=== PATIENT | female | born 1970 | race Caucasian/White ===

== ENCOUNTER 2022-04-09 19:42 | Emergency (ER) | payer OTHER ==
[~2022-04-09] VITALS: Ht 142.2 cm; Wt 49.9 kg
[2022-04-09 21:00] LABS: BASOPHILS ABSOLUTE AUTO 0.09 K/mm3 (0.00-0.23); BASOPHILS PERCENT AUTO 1 % (0-2); EOSINOPHILS ABSOLUTE AUTO 0.29 K/mm3 (0.00-0.68); EOSINOPHILS PERCENT AUTO 4 % (0-6); Hemoglobin 11.3 g/dL (11.5-16.0); IMMATURE GRAN ABSOLUTE AUTO 0.02 K/mm3 (0.00-0.10); IMMATURE GRAN PERCENT AUTO 0 % (0-1); LYMPHOCYTES ABSOLUTE AUTO 2.08 K/mm3 (0.84-5.20); LYMPHOCYTES PERCENT AUTO 26 % (21-46); MONOCYTES ABSOLUTE AUTO 0.59 K/mm3 (0.16-1.47); MONOCYTES PERCENT AUTO 7 % (4-13); Mean Corpuscular HGB 24.7 pg (26.0-34.0); Mean Corpuscular HGB Conc 30.5 g/dL (31.5-36.5); Mean Corpuscular Volume 81 fL (80-100); Mean Platelet Volume 10.3 fL (9.1-12.4); NEUTROPHILS ABSOLUTE AUTO 5.01 K/mm3 (1.96-9.15); NEUTROPHILS PERCENT AUTO 62 % (41-73); Platelet Count 391 K/mm3 (150-400); RDW Coefficient Variation 16.3 % (11.7-14.2); RDW Standard Deviation 47.6 fL (35.1-46.3); Red Blood Cell Count 4.57 M/mm3 (3.80-5.20); White Blood Cell Count 8.08 K/mm3 (4.00-11.30)
[2022-04-09 21:20] LABS: Albumin, Blood 3.2 g/dL (3.4-5.0); Albumin/Globulin Ratio 0.7 (0.8-1.8); Bilirubin, Total 0.2 mg/dL (0.1-1.0); Bun/Creatinine Ratio 39.9 (12.0-20.0); Calcium, Blood 8.9 mg/dL (8.5-10.1); Creatinine, Blood 0.6 mg/dL (0.40-1.00); Globulin, Blood 4.7 g/dL (2.2-4.0); Potassium, Blood 4.1 mmol/L (3.5-5.5); Total Protein, Blood 7.9 g/dL (6.4-8.2)
[2022-04-10] MEDS ORDERED: ONDA4ODT MM (00:32)
== END 2022-04-10 00:40 | disposition home or self-care (01) ==
LOC: ER 19:42
PROVIDERS: Physician Assistant
DX: R10.84 Generalized abdominal pain (principal); K92.0 Hematemesis; F17.210 Nicotine dependence, cigarettes, uncomplicated; Z88.1 Allergy status to other antibiotic agents; Z91.018 Allergy to other foods
CPT/HCPCS: 74177; 80053; 85025; 86850; 86900; 86901; 96374; 96376; 99284-25; J2405; Q9967

== ENCOUNTER → 2022-04-30 | Outpatient (CLI) | payer OTHER ==
[~2022-04-30] MED LIST: ONDA4ODT MM
== END | disposition home or self-care (01) ==
LOC: LAB SHORT 13:05 → LAB 13:05
DX: R76.12 Nonspecific reaction to cell mediated immunity measurement of gamma interferon antigen response without active tuberculosis (principal)
CPT/HCPCS: 87015; 87116; 87206

== ENCOUNTER 2023-05-19 19:59 | Emergency (ER) | payer OTHER ==
[~2023-05-19] VITALS: Ht 142.2 cm; Wt 47.6 kg
[2023-05-19 20:49] LABS: BASOPHILS ABSOLUTE AUTO 0.06 K/mm3 (0.00-0.23); BASOPHILS PERCENT AUTO 1 % (0-2); EOSINOPHILS ABSOLUTE AUTO 0.43 K/mm3 (0.00-0.68); EOSINOPHILS PERCENT AUTO 7 % (0-6); Hematocrit 43.7 % (33.0-51.0); Hemoglobin 13.7 g/dL (11.5-16.0); IMMATURE GRAN ABSOLUTE AUTO 0.01 K/mm3 (0.00-0.10); IMMATURE GRAN PERCENT AUTO 0 % (0-1); LYMPHOCYTES ABSOLUTE AUTO 2.36 K/mm3 (0.84-5.20); LYMPHOCYTES PERCENT AUTO 37 % (21-46); MONOCYTES ABSOLUTE AUTO 0.52 K/mm3 (0.16-1.47); MONOCYTES PERCENT AUTO 8 % (4-13); Mean Corpuscular HGB 29.8 pg (26.0-34.0); Mean Corpuscular HGB Conc 31.4 g/dL (31.5-36.5); Mean Corpuscular Volume 95 fL (80-100); Mean Platelet Volume 10.6 fL (9.1-12.4); NEUTROPHILS ABSOLUTE AUTO 3.07 K/mm3 (1.96-9.15); NEUTROPHILS PERCENT AUTO 48 % (41-73); Platelet Count 220 K/mm3 (150-400); RDW Coefficient Variation 13.5 % (11.7-14.2); RDW Standard Deviation 47.4 fL (35.1-46.3); White Blood Cell Count 6.45 K/mm3 (4.00-11.30)
[2023-05-19 21:11] LABS: Albumin, Blood 3.3 g/dL (3.4-5.0); Albumin/Globulin Ratio 0.9 (0.8-1.8); Bilirubin, Total 0.2 mg/dL (0.1-1.0); Bun/Creatinine Ratio 11.9 (12.0-20.0); Calcium, Blood 8.5 mg/dL (8.5-10.1); Creatinine, Blood 0.76 mg/dL (0.40-1.00); Globulin, Blood 3.5 g/dL (2.2-4.0); Potassium, Blood 4.4 mmol/L (3.5-5.5); Total Protein, Blood 6.8 g/dL (6.4-8.2)
[2023-05-20 00:15] VITALS: BP 119/89
[2023-05-20] MEDS ORDERED: SUCR1 PO (00:28)
[2023-05-20] MEDS ORDERED: PANT40 PO (00:28)
[2023-05-20] MEDS ORDERED: ONDA4ODT MM (00:29)
== END 2023-05-20 00:18 | disposition home or self-care (01) ==
LOC: ER 19:59
PROVIDERS: Student in an Organized Health Care Education/Training Program
DX: K92.1 Melena (principal); R11.2 Nausea with vomiting, unspecified; R10.13 Epigastric pain; Z88.1 Allergy status to other antibiotic agents; Z88.8 Allergy status to other drugs, medicaments and biological substances; Z91.018 Allergy to other foods; K21.9 Gastro-esophageal reflux disease without esophagitis; F17.210 Nicotine dependence, cigarettes, uncomplicated
CPT/HCPCS: 80053; 85025; 86850; 86900; 86901; 96374; 96375; 99283-25; A9270; C9113; J2405

== ENCOUNTER 2023-09-24 15:13 | Emergency (ER) | payer OTHER ==
[~2023-09-24] VITALS: Ht 147.3 cm; Wt 55.3 kg
[~2023-09-24 15:13] MED LIST changes: +PANT40 PO; +SUCR1 PO
[2023-09-24 16:11] LABS: BASOPHILS ABSOLUTE AUTO 0.05 K/mm3 (0.00-0.23); BASOPHILS PERCENT AUTO 0 % (0-2); EOSINOPHILS PERCENT AUTO 2 % (0-6); Hematocrit 39.6 % (33.0-51.0); Hemoglobin 12.6 g/dL (11.5-16.0); IMMATURE GRAN ABSOLUTE AUTO 0.05 K/mm3 (0.00-0.10); IMMATURE GRAN PERCENT AUTO 0 % (0-1); LYMPHOCYTES ABSOLUTE AUTO 1.37 K/mm3 (0.84-5.20); LYMPHOCYTES PERCENT AUTO 9 % (21-46); MONOCYTES PERCENT AUTO 7 % (4-13); Mean Corpuscular HGB 28.9 pg (26.0-34.0); Mean Corpuscular HGB Conc 31.8 g/dL (31.5-36.5); Mean Corpuscular Volume 91 fL (80-100); Mean Platelet Volume 9.8 fL (9.1-12.4); NEUTROPHILS ABSOLUTE AUTO 12.35 K/mm3 (1.96-9.15); NEUTROPHILS PERCENT AUTO 82 % (41-73); Platelet Count 216 K/mm3 (150-400); RDW Coefficient Variation 14.5 % (11.7-14.2); RDW Standard Deviation 48.7 fL (35.1-46.3); Red Blood Cell Count 4.36 M/mm3 (3.80-5.20); White Blood Cell Count 15.12 K/mm3 (4.00-11.30)
[2023-09-24 16:38] LABS: Magnesium, Blood 2.1 mg/dL (1.6-2.4)
[2023-09-24 16:50] LABS: Albumin, Blood 3.2 g/dL (3.4-5.0); Albumin/Globulin Ratio 0.8 (0.8-1.8); Bilirubin, Total 0.4 mg/dL (0.1-1.0); Bun/Creatinine Ratio 16.7 (12.0-20.0); Calcium, Blood 8.6 mg/dL (8.5-10.1); Creatinine, Blood 0.66 mg/dL (0.40-1.00); Globulin, Blood 3.9 g/dL (2.2-4.0); Potassium, Blood 4.6 mmol/L (3.5-5.5); Total Protein, Blood 7.1 g/dL (6.4-8.2)
[2023-09-24] MEDS ORDERED: Vibramycin100 MG PO (18:45)
[2023-09-24 19:02] VITALS: BP 125/77
== END 2023-09-24 19:05 | disposition home or self-care (01) ==
LOC: ER 15:13
PROVIDERS: Physician Assistant
DX: J44.9 Chronic obstructive pulmonary disease, unspecified (principal); J06.9 Acute upper respiratory infection, unspecified; D72.829 Elevated white blood cell count, unspecified; F17.210 Nicotine dependence, cigarettes, uncomplicated; Z88.1 Allergy status to other antibiotic agents; Z88.8 Allergy status to other drugs, medicaments and biological substances; Z91.018 Allergy to other foods; Z79.899 Other long term (current) drug therapy
CPT/HCPCS: 80053; 83735; 85025; 99283; A9270

== ENCOUNTER 2024-06-15 10:26 | Inpatient (IN) | payer OTHER ==
[~2024-06-15] VITALS: Ht 142.2 cm; Wt 63.5 kg
[~2024-06-15 10:26] MED LIST changes: +ALBU90OI61; +BUSPIRONE HCL10 M2; +CEPH500 PO; +COMPRESSION STOCKING; +Celexa20 MG; +LASIX20 M2 PO; +LOSA50; +METH10; +METH40; +PANT20; +Vibramycin100 MG PO
[2024-06-15 11:29] LABS: BASOPHILS ABSOLUTE AUTO 0.06 K/mm3 (0.00-0.23); BASOPHILS PERCENT AUTO 0 % (0-2); EOSINOPHILS ABSOLUTE AUTO 0.24 K/mm3 (0.00-0.68); EOSINOPHILS PERCENT AUTO 2 % (0-6); Hemoglobin 12.7 g/dL (11.5-16.0); IMMATURE GRAN ABSOLUTE AUTO 0.05 K/mm3 (0.00-0.10); IMMATURE GRAN PERCENT AUTO 0 % (0-1); LYMPHOCYTES ABSOLUTE AUTO 1.63 K/mm3 (0.84-5.20); LYMPHOCYTES PERCENT AUTO 12 % (21-46); MONOCYTES ABSOLUTE AUTO 0.99 K/mm3 (0.16-1.47); MONOCYTES PERCENT AUTO 7 % (4-13); Mean Corpuscular HGB 28.9 pg (26.0-34.0); Mean Corpuscular Volume 93 fL (80-100); Mean Platelet Volume 9.9 fL (9.1-12.4); NEUTROPHILS ABSOLUTE AUTO 10.63 K/mm3 (1.96-9.15); NEUTROPHILS PERCENT AUTO 78 % (41-73); Platelet Count 204 K/mm3 (150-400); RDW Coefficient Variation 15.9 % (11.7-14.2); RDW Standard Deviation 54.9 fL (35.1-46.3)
[2024-06-15] MEDS ORDERED: LOSARTAN POTASS25 M2 PO (11:44)
[2024-06-15] MEDS ORDERED: OLANZAPINE5 M1 PO (11:44)
[2024-06-15] MEDS ORDERED: PANTOPRAZOLE SO40 M2 PO (11:45)
[2024-06-15 11:46] LABS: Albumin, Blood 3.1 g/dL (3.4-5.0); Albumin/Globulin Ratio 0.8 (0.8-1.8); Bilirubin, Total 0.4 mg/dL (0.1-1.0); Bun/Creatinine Ratio 19.1 (12.0-20.0); Calcium, Blood 8.9 mg/dL (8.5-10.1); Creatinine, Blood 0.73 mg/dL (0.40-1.00); Potassium, Blood 4.7 mmol/L (3.5-5.5); Total Protein, Blood 7.1 g/dL (6.4-8.2)
[2024-06-15] MEDS ORDERED: LANSOPRAZOLE30 MG PO (11:47)
[2024-06-15] MEDS ORDERED: BUSPIRONE HCL10 M6 PO (11:47)
[2024-06-15] MEDS ORDERED: ONDA4 PO (11:47)
[2024-06-15] MEDS ORDERED: CITALOPRAM HBR20 M9 PO (11:48)
[2024-06-15] MEDS ORDERED: ALBU90OI INH (11:48)
[2024-06-15] MEDS ORDERED: MIRALAX11914 PO (11:48)
[2024-06-15 12:05] LABS: Source, Urine Clean Catch
[2024-06-15 12:15] LABS: Appearance, Urine Clear (Clear); Bilirubin, Urine Neg (Neg); Blood, Urine Neg (Neg); Color, Urine Yellow (P-Yellow); Glucose Qualitative, Urine Neg (Neg); Ketones, Urine Neg (Neg); Leukocyte Esterase, Urine 1+ (Neg); Nitrite, Urine Neg (Neg); Protein, Urine Neg (Neg); Urobilinogen, Urine 1+ (Normal); pH, Urine 6.5 (5.0-8.0)
[2024-06-15 12:26] LABS: Bacteria Rare /hpf; Red Blood Cells, Urine Not Seen /hpf (0-2); Squamous Epithelial Cells Few /hpf (Few)
[2024-06-15 13:14] LABS: BASOPHILS ABSOLUTE AUTO 0.04 K/mm3 (0.00-0.23); BASOPHILS PERCENT AUTO 0 % (0-2); EOSINOPHILS ABSOLUTE AUTO 0.24 K/mm3 (0.00-0.68); EOSINOPHILS PERCENT AUTO 2 % (0-6); Hematocrit 38.3 % (33.0-51.0); Hemoglobin 12.2 g/dL (11.5-16.0); IMMATURE GRAN ABSOLUTE AUTO 0.05 K/mm3 (0.00-0.10); IMMATURE GRAN PERCENT AUTO 0 % (0-1); LYMPHOCYTES ABSOLUTE AUTO 1.75 K/mm3 (0.84-5.20); LYMPHOCYTES PERCENT AUTO 14 % (21-46); MONOCYTES ABSOLUTE AUTO 0.83 K/mm3 (0.16-1.47); MONOCYTES PERCENT AUTO 7 % (4-13); Mean Corpuscular HGB 29.3 pg (26.0-34.0); Mean Corpuscular HGB Conc 31.9 g/dL (31.5-36.5); Mean Corpuscular Volume 92 fL (80-100); Mean Platelet Volume 10.2 fL (9.1-12.4); NEUTROPHILS ABSOLUTE AUTO 9.39 K/mm3 (1.96-9.15); NEUTROPHILS PERCENT AUTO 76 % (41-73); Platelet Count 189 K/mm3 (150-400); RDW Coefficient Variation 15.8 % (11.7-14.2); RDW Standard Deviation 52.9 fL (35.1-46.3); Red Blood Cell Count 4.17 M/mm3 (3.80-5.20)
[2024-06-15 13:41] LABS: Albumin, Blood 2.9 g/dL (3.4-5.0); Albumin/Globulin Ratio 0.7 (0.8-1.8); Bilirubin, Total 0.4 mg/dL (0.1-1.0); Bun/Creatinine Ratio 20.5 (12.0-20.0); Calcium, Blood 8.4 mg/dL (8.5-10.1); Creatinine, Blood 0.68 mg/dL (0.40-1.00); Globulin, Blood 3.9 g/dL (2.2-4.0); Potassium, Blood 4.8 mmol/L (3.5-5.5); Total Protein, Blood 6.8 g/dL (6.4-8.2)
[2024-06-15] MEDS ORDERED: Aspirin 325 MG Tab PO ONE ×2 (16:20→18:00)
[2024-06-15] MEDS ORDERED: Albuterol 2.5 MG/3 ML VIAL INH PRN (17:40)
[2024-06-15] MEDS ORDERED: Acetaminophen 325 MG TABLET PO PRN (17:40)
[2024-06-15] MEDS ORDERED: Ondansetron HCl 2 MG / ML 2ML Vial IV PRN (17:45)
[2024-06-15] MEDS ORDERED: Ipratropium/Albuterol SulF 2.5-0.5MG/3 ML Amp INH SCH (17:45)
[2024-06-15] MEDS ORDERED: NS 1,000 ML IV SCH (17:45)
[2024-06-15] MEDS ORDERED: NS 1,000 ML IV ONE ×2 (18:00→19:50)
[2024-06-15] MEDS ORDERED: MethylPREDNISolone Sod Succ 125 MG Vial IV SCH ×2 (18:00→20:00)
[2024-06-15 18:03] LABS: U Methadone Screen DETECTED
[2024-06-15 18:04] LABS: U Amphetamine Screen Not Detected; U Barbituate Screen Not Detected; U Benzodiazapine Screen Not Detected; U Buprenorphine Screen Not Detected; U Cannabinoids Screen Not Detected; U Cocaine Screen Not Detected; U Methamphetamine Screen Not Detected; U Opiates Screen Not Detected; U Oxycodone Screen Not Detected; U Phencyclidine Screen Not Detected
[2024-06-15] MEDS ORDERED: CefTRIAXone Sodium 1,000 MG in NS 100 ML IV SCH (18:30)
[2024-06-15 19:38] LABS: SARS-Cov-2 (COVID-19) PCR, MMC NEGATIVE (NEGATIVE)
[2024-06-15 20:25] VITALS: BP 113/70
[2024-06-15] MEDS ORDERED: Doxycycline Hyclate 100 MG TAB PO SCH (21:00)
[2024-06-15] MEDS ORDERED: Lactobacil 2-S.Thermo-Bifido 1 1 Cap PO SCH (21:00)
[2024-06-15] MEDS ORDERED: OLANZapine 5 MG Tab PO SCH (21:00)
[2024-06-16 03:43] VITALS: BP 108/68
[2024-06-16 05:29] LABS: Hemoglobin 12.4 g/dL (11.5-16.0); Mean Corpuscular Volume 94 fL (80-100); Mean Platelet Volume 10.7 fL (9.1-12.4); Platelet Count 149 K/mm3 (150-400); RDW Coefficient Variation 15.8 % (11.7-14.2); RDW Standard Deviation 54.4 fL (35.1-46.3); Red Blood Cell Count 4.28 M/mm3 (3.80-5.20); White Blood Cell Count 6.35 K/mm3 (4.00-11.30)
[2024-06-16] MEDS ORDERED: Pantoprazole Sodium 40 MG Injection IV SCH (06:00)
[2024-06-16 06:05] LABS: Anion Gap 9 mmol/L (3-11); Blood Urea Nitrogen 10 mg/dL (8-24); Bun/Creatinine Ratio 18.1 (12.0-20.0); CHOL/HDL RATIO 2.9; CO2, Blood 28 mmol/L (21-32); Calcium, Blood 8.6 mg/dL (8.5-10.1); Chloride, Blood 106 mmol/L (98-108); Cholesterol 144 mg/dL (50-200); Creatinine, Blood 0.55 mg/dL (0.40-1.00); Glomerular Filtration Rate 111 (60-); Glucose, Blood 228 mg/dL (70-99); HDL Cholesterol 50 mg/dL (>39); LDL/HDL RATIO 1.7; Low Density Lipoprotein Chol 85 mg/dL (0-110); Magnesium, Blood 2.2 mg/dL (1.6-2.4); Potassium, Blood 4.2 mmol/L (3.5-5.5); Sodium, Blood 139 mmol/L (136-145); Triglycerides 43 mg/dL (30-160); Very Low Density Lipoprot Chol 8 mg/dL (6-32)
--- NOTE | 2024-06-16 06:45 | NUR ---
PT ARRIVED ON FLOOR A/OX4, NO PAIN, 2L OF OXYGEN VIA NC. ADMISSION PROCESS COMPLETED, PT VERY TIRED AND QUICK TO FALL ASLEEP. OCCASIONALLY DESATURATED WHILE ASLEEP, REQUIRING INCREASE IN OXYGEN FLOW UP TO 6-7 LITERS FOR OXYGEN TO RETURN >90, TITRATED TO 3L.
[2024-06-16 07:14] VITALS: BP 121/76
[2024-06-16] MEDS ORDERED: Aspirin 81 MG Chew PO SCH (09:00)
[2024-06-16] MEDS ORDERED: Enoxaparin 40 MG/0.4 ML SYR SC SCH (09:00)
--- NOTE | 2024-06-16 10:31 | NUR ---
METHADONE CALLED [facility] AND SPOKE WITH MICHAEL, VERIFIED PATIENT TAKES 120MG METHADONE DAILY. WILL NEED TO KEEP A RECORD OF EACH DAY SHE RECEIVES METHADONE WHILE ADMITTED. PER SARAH, THEY WILL CONTACT HOSPITAL STAFF ONCE SHE DISCHARGES AND FOLLOWS UP WITH THE CLINIC FOR THIS INFORMATION.
[2024-06-16] MEDS ORDERED: Polyethylene Glycol 3350 17 gm PO PRN (10:35)
[2024-06-16] MEDS ORDERED: METH40 PO (10:36)
[2024-06-16] MEDS ORDERED: Methadone HCL 10 MG TAB PO SCH (11:00)
[2024-06-16 14:58] VITALS: BP 134/71
[2024-06-16] MEDS ORDERED: MethylPREDNISolone Sod Succ 125 MG Vial IV SCH (16:00)
[2024-06-16] MEDS ORDERED: Pantoprazole Sodium 20 MG Tab PO SCH (16:30)
--- NOTE | 2024-06-16 19:39 | NUR ---
SHIFT SUMMARY COPD EXACERBATION, FLUIDS ORDERED, ABX ORDERED, BREATHING TREATMENTS AND STEROIDS ORDERED, PT HAS VERY WHEEZY LUNGS AND WAS EDUCATED TO DEEP BREATH WHEN HER BIOX BEEPS IF NO STAFF IS IN THE ROOM, EDUCATED HER TO CALL IF SHE FEELS SOB, NO SOB THIS SHIFT, CALLS APPROPRIATELLY. NO ACUTE EVENTS THIS SHIFT, CALL LIGHT IN PLACE.
[2024-06-16 19:53] VITALS: BP 108/56
[2024-06-16] MEDS ORDERED: Docusate Sodium/Senna 1 Tab PO SCH (21:00)
[2024-06-16] MEDS ORDERED: GuaiFENesin 600 MG TabCR PO SCH (21:00)
[2024-06-17 03:36] VITALS: BP 113/75
[2024-06-17 06:48] LABS: Albumin, Blood 2.6 g/dL (3.4-5.0); Anion Gap 9 mmol/L (3-11); Blood Urea Nitrogen 13 mg/dL (8-24); Bun/Creatinine Ratio 23.7 (12.0-20.0); CO2, Blood 26 mmol/L (21-32); Calcium, Blood 8.5 mg/dL (8.5-10.1); Chloride, Blood 108 mmol/L (98-108); Creatinine, Blood 0.55 mg/dL (0.40-1.00); Glomerular Filtration Rate 111 (60-); Glucose, Blood 192 mg/dL (70-99); Phosphorus, Blood 2.6 mg/dL (2.5-4.9); Potassium, Blood 4.4 mmol/L (3.5-5.5); Sodium, Blood 139 mmol/L (136-145)
[2024-06-17 07:29] VITALS: BP 146/93
[2024-06-17 14:33] VITALS: BP 132/88
[2024-06-17 19:37] VITALS: BP 137/88
--- NOTE | 2024-06-17 20:25 | NUR ---
SHIFT SUMMARY COPD EXACERBATION, BREATHING IMPROVED TODAY, O2 REMAINSTHE SAME BUT SATS ARE A FEW POINTS HIGHER AT 93-94%, AMBULATES IN THE ROOM WITH SBA. NO ACUTE EVENTS THIS SHIFT, CALL LIGHT IN REACH.
[2024-06-18 05:30] VITALS: BP 134/97
[2024-06-18 07:11] VITALS: BP 135/76
--- NOTE | 2024-06-18 07:13 | NUR ---
SHIFT SUMMARY NOC. PT ADMIT FOR COPD EXACERBATION. PT REPORTS SOB ON EXERTION, NO SOB AT REST OR CP. PT ON CONTIN BIOX AND WEANED FROM 4L TO 3L VIA N/C. PT VOIDING URINE AND TOLERATING PO INTAKE. PT RESTED WITH EYES AND CALL LIGHT IN REACH.
--- NOTE | 2024-06-18 08:28 | NUR ---
SPEECH THERAPY IN TO SEE PT.
[2024-06-18] MEDS ORDERED: PredniSONE 20 MG Tab PO SCH (09:00)
[2024-06-18] MEDS ORDERED: LOSA25 PO (10:55)
[2024-06-18] MEDS ORDERED: GABA300 PO (11:02)
[2024-06-18 14:39] VITALS: BP 149/98
--- NOTE | 2024-06-18 17:06 | NUR ---
SUMMARY NO ACUTE CHANGES T/O SHIFT. PT GETS SOB WITH EXERTION. FELT LIGHT HEADED BRIEFLY WHEN GOT UP TO BSC. KNOWS TO CALL FOR SBA WHEN GETTING UP TO BSC. SWALLOW EVAL COMPLETED TODAY AND DIET CHANGED TO SOFT BITE SIZED. CALL LIGHT IN REACH.
[2024-06-18 20:02] VITALS: BP 149/79
[2024-06-18] MEDS ORDERED: Losartan Potassium 25 MG Tab PO SCH (21:00)
[2024-06-18] MEDS ORDERED: BusPIRone HCl 10 MG Tab PO SCH (21:00)
--- NOTE | 2024-06-19 05:02 | NUR ---
SHIFT SUMMARY NOC. PT ADMIT FOR COPD EXACERBATION. PT SOB ON EXERTION, DENIES DYSPNEA AT REST OR CHEST PAIN. PT ON O2 VIA N/C WEANED TO 1L FROM 2L, NO DESAT EVENTS NOTED. PT VOIDING URINE. PT RESTED WITH EYES CLOSED AND CALL LIGHT IN REACH.
[2024-06-19 05:17] VITALS: BP 151/88
[2024-06-19] MEDS ORDERED: Pantoprazole Sodium 40 MG Tab PO SCH (06:00)
[2024-06-19 07:23] VITALS: BP 142/91
[2024-06-19] MEDS ORDERED: Citalopram Hydrobromide 20 MG Tab PO SCH (09:00)
[2024-06-19 14:44] VITALS: BP 136/94
--- NOTE | 2024-06-19 17:43 | NUR ---
SUMMARY PT'S 02 INCREASED TO 2L NC MIDDAY DUE TO INCREASED WORAK IN FULL SENTENCES. SATS IN LOW-MID 90S ON 2L NC. REPORTED BLOODY DISCHARGE FROM NOSE WHEN BLOWS IT. OXYGEN HUMIDIFIED. PT EATING DINNER AT THIS TIME. CALL LIGHT IN REACH.
[2024-06-19] MEDS ORDERED: Budesonide 0.5 MG/2 ML RESP INH SCH (19:00)
[2024-06-19 19:50] VITALS: BP 138/76
[2024-06-20 02:41] VITALS: BP 143/80
--- NOTE | 2024-06-20 02:45 | NUR ---
SHIFT SUMMARY NOC. PT ADMIT FOR COPD EXACERBATION. PT HAS SOB ON EXERTION, DENIES SOB AT REST OR CP. PT ON 2L VIA NC WITH BIOX IN PLACE. PT HAS HAD NO DESAT EVENTS. REPORTS PRODUCTIVE COUGH. PT VOIDING URINE. PT TRANSFERED FROM SURGICAL FLOOR TO MEDICAL FLOOR THIS SHIFT AT 0225. REPORT GIVEN BY STEP DOWN NURSE RONDA TO MEDICAL FLOOR.
[2024-06-20 05:55] LABS: Bun/Creatinine Ratio 24.4 (12.0-20.0); Calcium, Blood 8.9 mg/dL (8.5-10.1); Creatinine, Blood 0.66 mg/dL (0.40-1.00); Potassium, Blood 3.7 mmol/L (3.5-5.5)
[2024-06-20 07:34] VITALS: BP 155/88
[2024-06-20 14:55] VITALS: BP 137/85
[2024-06-20 16:25] LABS: Adenovirus Not Detected (NOT DETECT); Bordetella pertussis Not Detected (NOT DETECT); Chlamydophila pneumoniae Not Detected (NOT DETECT); Coronavirus 229E Not Detected (NOT DETECT); Coronavirus HKU1 Not Detected (NOT DETECT); Coronavirus NL63 Not Detected (NOT DETECT); Coronavirus OC43 Not Detected (NOT DETECT); Human Metapneumovirus Not Detected (NOT DETECT); Human Rhinovirus/Enterovirus Detected (NOT DETECT); Influenza A/2009-H1 Not Detected (NOT DETECT); Influenza A/H1 Not Detected (NOT DETECT); Influenza A/H3 Not Detected (NOT DETECT); Influenza B Not Detected (NOT DETECT); Mycoplasma pneumoniae Not Detected (NOT DETECT); Parainfluenza Virus 1 Not Detected (NOT DETECT); Parainfluenza Virus 2 Not Detected (NOT DETECT); Parainfluenza Virus 3 Not Detected (NOT DETECT); Parainfluenza Virus 4 Not Detected (NOT DETECT); Respiratory Syncytial Virus Not Detected (NOT DETECT); SARS-Cov-2 (COVID-19), BioFire Not Detected (NOT DETECT)
--- NOTE | 2024-06-20 18:46 | NUR ---
SUMMARY- PT AAOX4. IND IN ROOM THIS SHIFT. PT ON 1L CONTINUOUS O2 VIA NC THIS SHIFT. PT WEANED DOWN FROM 2L. NO ACUTE EVENTS THIS SHIFT. NO COMPLAINTS OF PAIN. PT CALM AND COOPERATIVE.
[2024-06-20 19:11] VITALS: BP 147/83
[2024-06-21 04:44] VITALS: BP 111/69
[2024-06-21 05:14] LABS: BASOPHILS ABSOLUTE AUTO 0.01 K/mm3 (0.00-0.23); BASOPHILS PERCENT AUTO 0 % (0-2); EOSINOPHILS ABSOLUTE AUTO 0.09 K/mm3 (0.00-0.68); EOSINOPHILS PERCENT AUTO 2 % (0-6); Hematocrit 37.6 % (33.0-51.0); Hemoglobin 11.8 g/dL (11.5-16.0); IMMATURE GRAN ABSOLUTE AUTO 0.06 K/mm3 (0.00-0.10); IMMATURE GRAN PERCENT AUTO 1 % (0-1); LYMPHOCYTES ABSOLUTE AUTO 1.94 K/mm3 (0.84-5.20); LYMPHOCYTES PERCENT AUTO 32 % (21-46); MONOCYTES PERCENT AUTO 7 % (4-13); Mean Corpuscular HGB 28.5 pg (26.0-34.0); Mean Corpuscular HGB Conc 31.4 g/dL (31.5-36.5); Mean Corpuscular Volume 91 fL (80-100); Mean Platelet Volume 10.4 fL (9.1-12.4); NEUTROPHILS ABSOLUTE AUTO 3.66 K/mm3 (1.96-9.15); NEUTROPHILS PERCENT AUTO 59 % (41-73); Platelet Count 179 K/mm3 (150-400); RDW Coefficient Variation 16.1 % (11.7-14.2); RDW Standard Deviation 54.4 fL (35.1-46.3); Red Blood Cell Count 4.14 M/mm3 (3.80-5.20); White Blood Cell Count 6.16 K/mm3 (4.00-11.30)
--- NOTE | 2024-06-21 05:47 | NUR ---
Patient alert and oriented, VSS, resting comfortably in room on 2L oxygen via nasal cannula. PIV saline locked at beginning of shift per orders, patient sleeping well overnight. Patient ambulating to bathroom independently for needs.
[2024-06-21 07:39] VITALS: BP 128/82
[2024-06-21] MEDS ORDERED: Ondansetron HCl 2 MG / ML 2ML Vial IV ONE (13:20)
[2024-06-21 15:49] VITALS: BP 124/73
--- NOTE | 2024-06-21 18:15 | NUR ---
SHIFT SUMMARY PT A&OX4, VSS, ON 2L O2 NC, AMB IND, TOLERATING PO, VOIDING, AND PAIN MANAGED PER EMAR. PT HAD 1 EMESIS THAT WAS MEDICATED PER THE EMAR AND IMPROVED. PT DENIES N/V SINCE ADMINISTRATION. PT HAS CHEST XR AND BARIUM SWALLOW, SEE NOTES. NO OTHER ACUTE CHANGES. CALL LIGHT WITHIN REACH AND PT ABLE TO MAKE NEEDS KNOWN.
[2024-06-21 19:48] VITALS: BP 127/73
[2024-06-22 03:31] VITALS: BP 119/77
--- NOTE | 2024-06-22 04:10 | NUR ---
PT RESTED QUIETLY THROUGH THE NIGHT. NO EVENTS, NO C/O. NO DISTRESS NOTED.
[2024-06-22 08:11] VITALS: BP 141/82
[2024-06-22 15:41] VITALS: BP 159/91
--- NOTE | 2024-06-22 17:50 | NUR ---
PT SUMMARY; PT C/O NAUSEA WITH NO EMESIS THIS AFTERNOON PT REQUESTED ZOFRAN FOR NAUSEA MD MADE AWARE RECOMMENDED TO TRY [facility]IA COURTNEY/CRACKERS DUE TO SOME INTERACTIONS WIHT PT'S PSYCH PT ABLE TO TRY SOME AND OFFERED A FAN, PT VERBALIZED EFFECTIVENESS. PT HAS BEEN INDEPENDENT IN THE ROOM. SOME SOB WITH ANXIETY, BRETAHING TX PER RT. VITALS HAS BEEN STABLE. GI HAS BEEN CONSULTED FOR POSSIBLE EGD. NO OTHER ISSUES ENCOUNTERED PT HAS BEEN PLEASANT AND COOPERATIVE, ABLE TO MAKE NEEDS KNOWN WILL REPORT TO ONCOMING SHIFT
[2024-06-22 20:09] VITALS: BP 135/83
[2024-06-23 02:35] VITALS: BP 113/70
--- NOTE | 2024-06-23 06:16 | NUR ---
SHIFT SUMMARY: Pt admitted for COPD exacerbation and is a full code. Is alert and able to make needs known. ADLs have been independent. On ISO for rhino virus. Denies pain or discomfort when asked.
[2024-06-23 07:24] VITALS: BP 113/69
[2024-06-23] MEDS ORDERED: PredniSONE 20 MG Tab PO SCH (09:00)
[2024-06-23 15:27] VITALS: BP 140/93
--- NOTE | 2024-06-23 16:14 | NUR ---
NO ACUTE CHANGES, PT IS AOX4 AND COOPERATIVE OF CARE. PT HAS BEEN INDEPENDENT IN ROOM. PT ABLE TO MAKE NEEDS KNOWN AND IS DOING WELL ON 2L NC. CALL LIGHT IS WITHIN REACH WILL CONTINUE TO MONITOR.
[2024-06-23 19:23] VITALS: BP 125/69
[2024-06-24 03:01] VITALS: BP 113/77
[2024-06-24 07:28] VITALS: BP 115/79
[2024-06-24] MEDS ORDERED: Lactated Ringer's 1,000 ML IV SCH (14:35)
[2024-06-24 15:17] VITALS: BP 148/75
--- NOTE | 2024-06-24 17:04 | NUR ---
SHIFT SUMMARY: PATIENT A/OX4, PLEASANT AND COOPERATIVE c CARE. PATIENT O2 TITRATED T/O SHIFT, CURRENTLY ON RA, SATING 91-94%. PATIENT NPO, SINCE 1400 FOR POSSIBLE EGD SOMETIMES THIS PM. PATIENT CONTINENT OF BOWEL/BLADDER, AMBULATES TO BATHROOM INDEPENDENTLY T/O SHIFT. PATIENT STILL ON DROPLET ISOLATION FOR RHINOVIRUS. PATIENT RECEIVED SCHEDULED MEDS PER EMAR. VITAL SIGNS REVIEWED. CALL LIGHT IN REACH.
--- NOTE | 2024-06-24 17:48 | NUR ---
NOTE: PATIENT LEFT THE ROOM AT THIS TIME VIA GURNEY TO DAY SURGERY FOR EGD.
[2024-06-24] MEDS ORDERED: propofoL 40 ML IV ONE (18:03)
[2024-06-24 18:11] VITALS: BP 132/85
--- NOTE | 2024-06-24 18:48 | NUR ---
06/24/24 1848 Jessica Hayward History, Chart, Medications and Allergies reviewed before start of procedure. NECKLACE REMOVED AND PLACED IN BAG IN CHART. Bite Block Placed.
[2024-06-24 20:24] VITALS: BP 134/75
[2024-06-25 04:43] VITALS: BP 126/96
--- NOTE | 2024-06-25 06:24 | NUR ---
SHIFT SUMMARY PATIENT ALEART AND ORIENTATED TIMES 3. POLITE AND RECEPTIVE TO CARE. DOES NOT HAVE HS MEDICATION AND APPEARED TO SLEEP THROUGH THE NIGHT WITH OUT ISSUES. BED ON LOW POSITION, CALL LIGHT WITHIN REACH, RAILS TIMES 2.
[2024-06-25 07:42] VITALS: BP 105/75
== END 2024-06-25 13:19 | disposition home or self-care (01) | DRG 193 ==
LOC: ER 10:26 → SURS 19:16 → MEDS 19:16 → SURS 20:13 → MEDS 06-20 02:34
PROVIDERS: Emergency Medicine; Internal Medicine; Internal Medicine Gastroenterology; Nurse Practitioner Acute Care; Physician Assistant; ADMIT Hospitalist
PROC: 0D738ZZ Dilation of Lower Esophagus, Via Natural or Artificial Opening Endoscopic (ICD-10-PCS; principal; 2024-06-24 16:30)
DX: J12.9 Viral pneumonia, unspecified (principal); J96.01 Acute respiratory failure with hypoxia; F11.20 Opioid dependence, uncomplicated; J44.0 Chronic obstructive pulmonary disease with (acute) lower respiratory infection; J44.1 Chronic obstructive pulmonary disease with (acute) exacerbation; K21.9 Gastro-esophageal reflux disease without esophagitis; K22.70 Barrett's esophagus without dysplasia; K44.9 Diaphragmatic hernia without obstruction or gangrene; Z87.19 Personal history of other diseases of the digestive system; G89.29 Other chronic pain; I12.9 Hypertensive chronic kidney disease with stage 1 through stage 4 chronic kidney disease, or unspecified chronic kidney disease; K22.2 Esophageal obstruction; H53.8 Other visual disturbances; E66.9 Obesity, unspecified; N18.9 Chronic kidney disease, unspecified; E55.9 Vitamin D deficiency, unspecified; B19.20 Unspecified viral hepatitis C without hepatic coma; K58.9 Irritable bowel syndrome, unspecified; F41.1 Generalized anxiety disorder; F43.10 Post-traumatic stress disorder, unspecified; Z90.49 Acquired absence of other specified parts of digestive tract; F17.210 Nicotine dependence, cigarettes, uncomplicated; Z88.8 Allergy status to other drugs, medicaments and biological substances; Z88.1 Allergy status to other antibiotic agents; Z91.018 Allergy to other foods; Z79.899 Other long term (current) drug therapy; Z68.32 Body mass index [BMI] 32.0-32.9, adult
CPT/HCPCS: 0202U; 36415; 70450; 70496; 70498; 70551; 71045; 71046; 74230; 80048; 80053; 80061; 80069; 81001; 83036; 83735; 83880; 84145; 84484; 85025; 85027; 85730; 87086; 87147; 92526; 92610; 92611; 93005; 93010; 94640; 94664; 94760; 94761; 94762; 97162; 97165; 97530; 97535; 99285-25; A9270; C1726; J0696; J1650; J2405; J2470; J2704; J2919; J7030; J7120; J7512; Q9967; U0002

== ENCOUNTER → 2024-09-07 | Outpatient (CLI) | payer OTHER ==
[~2024-09-07] MED LIST changes: +ALBU90OI INH; +BUSPIRONE HCL10 M6 PO; +CITALOPRAM HBR20 M9 PO; +GABA300 PO; +LANSOPRAZOLE30 MG PO; +LOSA25 PO; +LOSARTAN POTASS25 M2 PO; +METH40 PO; +MIRALAX11914 PO; +OLANZAPINE5 M1 PO; +ONDA4 PO; +PANTOPRAZOLE SO40 M2 PO
[2024-09-07 19:10] LABS: Percent Saturation 15.4 % (15.0-50.0)
== END ==
LOC: LAB 17:37 → LAB SHORT 17:37
PROVIDERS: Internal Medicine Hematology & Oncology
DX: E61.1 Iron deficiency (principal)
CPT/HCPCS: 82728; 83540; 83550

== ENCOUNTER 2025-07-16 19:10 | Emergency (ER) | payer OTHER ==
[~2025-07-16] VITALS: Ht 142.2 cm; Wt 61.7 kg
[2025-07-16] MEDS ORDERED: Ipratropium/Albuterol SulF 2.5-0.5MG/3 ML Amp INH ONE (19:50)
[2025-07-16 20:30] LABS: BASOPHILS ABSOLUTE AUTO 0.05 K/mm3 (0.00-0.23); BASOPHILS PERCENT AUTO 1 % (0-2); EOSINOPHILS ABSOLUTE AUTO 0.48 K/mm3 (0.00-0.68); EOSINOPHILS PERCENT AUTO 9 % (0-6); Hematocrit 32.5 % (33.0-51.0); Hemoglobin 9.9 g/dL (11.5-16.0); IMMATURE GRAN ABSOLUTE AUTO 0.02 K/mm3 (0.00-0.10); IMMATURE GRAN PERCENT AUTO 0 % (0-1); LYMPHOCYTES ABSOLUTE AUTO 2.18 K/mm3 (0.84-5.20); LYMPHOCYTES PERCENT AUTO 38 % (21-46); MONOCYTES ABSOLUTE AUTO 0.42 K/mm3 (0.16-1.47); MONOCYTES PERCENT AUTO 7 % (4-13); Mean Corpuscular HGB Conc 30.5 g/dL (31.5-36.5); Mean Corpuscular Volume 82 fL (80-100); NEUTROPHILS ABSOLUTE AUTO 2.53 K/mm3 (1.96-9.15); NEUTROPHILS PERCENT AUTO 44 % (41-73); NRBC ABSOLUTE 0.00 K/mm3 (0.00-0.02); NRBC Auto 0.0 /100 WBC (0.0-0.2); Platelet Count 214 K/mm3 (150-400); RDW Coefficient Variation 19.6 % (11.7-14.2); RDW Standard Deviation 58.8 fL (35.1-46.3)
[2025-07-16 20:45] LABS: Anion Gap 6.0 mmol/L (3-11); Blood Urea Nitrogen 14.0 mg/dL (8-24); CO2, Blood 26.0 mmol/L (21-32); Calcium, Blood 7.6 mg/dL (8.5-10.1); Chloride, Blood 113.0 mmol/L (98-108); Creatinine, Blood 0.62 mg/dL (0.40-1.00); Glucose, Blood 81.0 mg/dL (70-99); Potassium, Blood 3.2 mmol/L (3.5-5.5); Sodium, Blood 142.0 mmol/L (136-145)
[2025-07-16 21:12] LABS: Influenza A, PCR NEGATIVE (NEGATIVE); Influenza B, PCR NEGATIVE (NEGATIVE); Resp Syncytial Virus, PCR NEGATIVE (NEGATIVE); SARS-Cov-2 (COVID-19) PCR, MMC NEGATIVE (NEGATIVE)
[2025-07-16] MEDS ORDERED: PRED20 PO (22:03)
[2025-07-16] MEDS ORDERED: Calcium Carbon500 MG PO (22:03)
[2025-07-16] MEDS ORDERED: ALBU2.5V5 INH (22:03)
[2025-07-16] MEDS ORDERED: POTA10T PO (22:03)
[2025-07-16 22:30] VITALS: BP 111/64
== END 2025-07-16 22:46 | disposition home or self-care (01) ==
LOC: ER 19:10
PROVIDERS: Emergency Medicine
DX: J44.1 Chronic obstructive pulmonary disease with (acute) exacerbation (principal); E87.6 Hypokalemia; E83.51 Hypocalcemia; F17.210 Nicotine dependence, cigarettes, uncomplicated; Z88.1 Allergy status to other antibiotic agents; Z88.8 Allergy status to other drugs, medicaments and biological substances; Z91.018 Allergy to other foods; Z79.891 Long term (current) use of opiate analgesic; Z79.899 Other long term (current) drug therapy
CPT/HCPCS: 71045; 80048; 84484; 85025; 87637; 93005; 93010; 96372; 96374; 99285-25; A9270; J2919